=== PATIENT | male | born 1970 | race Two or more races ===

== ENCOUNTER → 2017-05-08 | Outpatient (REF) | payer BC | LOC: M SMT 17:05 | PROVIDERS: ATTEND Nurse Practitioner Women's Health | DX: R35.0 Frequency of micturition (principal) ==

== ENCOUNTER → 2018-07-20 | Outpatient (CLI) | payer BC ==
[2018-07-20 19:59] LABS: FREE THYROXINE INDEX 2.4 % (1.4-3.8); T UPTAKE 34 % (33-40)
[2018-07-23 14:16] LABS: SSA SJOGRENS A <0.2 AI (0.0-0.9); SSB SJOGRENS B <0.2 AI (0.0-0.9)
== END ==
LOC: M WUC 11:53
DX: M35.00 Sjogren syndrome, unspecified (principal); Z13.29 Encounter for screening for other suspected endocrine disorder
CPT/HCPCS: 84443

== ENCOUNTER 2019-03-20 10:46 | Day surgery (SDC) | payer BC ==
[~2019-03-20] VITALS: Ht 172.7 cm; Wt 82.6 kg
[~2019-03-20 10:46] MED LIST: EZET10TA21 PO; NS 1,000 ML IV ONE; OMEGCAP9 PO; RED600TA PO
[2019-03-20] MEDS ORDERED: PROPOFOL 200 MG/20 ML VIAL As Ordered ONE ×2 (11:51→12:47)
[2019-03-20] MEDS ORDERED: LIDOCAINE 2% INJ 100 MG/5 ML SDV (FOR ANES.) As Ordered ONE (11:52)
--- NOTE | 2019-03-20 12:45 | ROOR ---
Patient Name: Tavon Stewart Procedure Date: 03/20/2019 12:29 PM Date of : 1970 Age: 48 Room: [facility] Gender: Male Note Status: Finalized Procedure: Colonoscopy Indications: Screening for colorectal malignant neoplasm Providers: Michael Solis Jr, MD Referring MD: KELLY MARI Requesting Provider: Medicines: Propofol per Anesthesia Complications: No immediate complications. Procedure: Pre-Anesthesia Assessment: - Prior to the procedure, a History and Physical was performed, and patient medications and allergies were reviewed. The patient is competent. The risks and benefits of the procedure and the sedation options and risks were discussed with the patient. All questions were answered and informed consent was obtained. Patient identification and proposed procedure were verified by the physician and the nurse in the pre-procedure area and in the procedure room. Mental Status Examination: alert and oriented. Airway Examination: normal oropharyngeal airway and neck mobility. Respiratory Examination: clear to auscultation. CV Examination: normal. ASA Grade Assessment: II - A patient with mild systemic disease. After reviewing the risks and benefits, the patient was deemed in satisfactory condition to undergo the procedure. The anesthesia plan was to use moderate sedation / analgesia (conscious sedation). Immediately prior to administration of medications, the patient was re-assessed for adequacy to receive sedatives. The heart rate, respiratory rate, oxygen saturations, blood pressure, adequacy of pulmonary ventilation, and response to care were monitored throughout the procedure. The physical status of the patient was re-assessed after the procedure. The Colonoscope was introduced through the anus and advanced to the cecum, identified by appendiceal orifice and ileocecal valve. The colonoscopy was performed without difficulty. The patient tolerated the procedure well. The quality of the bowel preparation was adequate. Findings: The rectum, recto-sigmoid colon, sigmoid colon, descending colon, transverse colon, cecum, appendiceal orifice and ileocecal valve appeared normal. A diminutive polyp was found in the ascending colon. The polyp was removed with a jumbo cold forceps. Resection and retrieval were complete. Impression: - The rectum, recto-sigmoid colon, sigmoid colon, descending colon, transverse colon, cecum, appendiceal orifice and ileocecal valve are normal. - One diminutive polyp in the ascending colon, removed with a jumbo cold forceps. Resected and retrieved. Recommendation: - Discharge patient to home (ambulatory). - Repeat colonoscopy in 5-10 years for surveillance based on pathology results. - Telephone my office for pathology results in 1 week. Michael Solis MD Michael Solis Jr, MD 03/20/2019 12:44:51 PM Electronically signed by Michael Solis Jr, MD Number of Addenda: 0 Note Initiated On: 03/20/2019 12:29 PM Estimated Blood Loss: Estimated blood loss: none.
[2019-03-20 13:10] VITALS: BP 124/94
== END 2019-03-20 13:21 | disposition home or self-care (01) ==
LOC: M OPP 10:46
PROVIDERS: ATTEND Surgery
DX: D12.2 Benign neoplasm of ascending colon (principal); Z12.11 Encounter for screening for malignant neoplasm of colon

== ENCOUNTER 2019-08-01 16:21 | Emergency (ER) | payer BC ==
[~2019-08-01] VITALS: Ht 172.7 cm; Wt 91.4 kg
[~2019-08-01 16:21] MED LIST changes: -NS 1,000 ML IV ONE
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
[2019-08-01] MEDS ORDERED: ADACEL/BOOSTRIX VACCINE (DIPHTH/PERTUSS/ACELL/TETANUS)0.5ML SYR (90715) IM ONE (18:45)
[2019-08-01 18:55] VITALS: BP 140/86
== END 2019-08-01 18:58 | disposition home or self-care (01) ==
LOC: M ED 16:21
DX: S09.90XA Unspecified injury of head, initial encounter (principal); S13.4XXA Sprain of ligaments of cervical spine, initial encounter; S00.31XA Abrasion of nose, initial encounter; W17.89XA Other fall from one level to another, initial encounter; W22.8XXA Striking against or struck by other objects, initial encounter; Y99.0 Civilian activity done for income or pay; Z79.899 Other long term (current) drug therapy

== ENCOUNTER 2019-09-22 08:19 | Emergency (ER) | payer BC ==
[~2019-09-22] VITALS: Ht 172.7 cm; Wt 84.1 kg
[2019-09-22] MEDS ORDERED: ALEVE (08:28)
--- NOTE | 2019-09-22 09:29 | REP ---
Right hip: Two views. History: Right hip pain. Findings: AP and frog-leg views of the right hip demonstrate normal bones, joints and soft tissues. No fracture or subluxation is seen. Impression: Negative radiographs of the right hip. Electronically Signed by Froy Rios MD 09/22/2019 09:20 A
--- NOTE | 2019-09-22 09:30 | REP ---
Right shoulder: Three views. History: Right shoulder pain. Findings: There is subcortical cyst formation and spurring at the acromioclavicular joint consistent with osteoarthritis. Glenohumeral articulation and the AC joint are normally aligned. Periarticular soft tissues are unremarkable. Impression: AC joint osteoarthritis with subcortical cyst formation. No acute bony abnormality. Electronically Signed by Froy Rios MD 09/22/2019 09:21 A
[2019-09-22 10:08] VITALS: BP 135/91
== END 2019-09-22 10:24 | disposition home or self-care (01) ==
LOC: M ED 08:19
DX: M19.011 Primary osteoarthritis, right shoulder (principal); M85.611 Other cyst of bone, right shoulder; M25.551 Pain in right hip; Z79.899 Other long term (current) drug therapy

== ENCOUNTER → 2019-10-09 | Outpatient (CLI) | payer BC ==
[~2019-10-09] MED LIST changes: +ALEVE
--- NOTE | 2019-10-09 14:10 | REPVR ---
PROCEDURE INFORMATION: Exam: MR Lumbar Spine Without Contrast. Exam date and time: 10/09/2019 12:30 PM Age: 49 years old Clinical indication: Low back pain; Additional info: M54.5 low back pain TECHNIQUE: Imaging protocol: Multiplanar magnetic resonance images of the lumbar spine without intravenous contrast. COMPARISON: CR Spine. Lumbosacral, complete 09/15/2014 1:52 PM FINDINGS: Vertebrae: There is no fracture or listhesis. Normal vertebral body alignment and heights are preserved. Spinal cord: The conus medullaris terminates at L2. L1-L2: There is shallow disc bulging. There is mild facet hypertrophy. The spinal canal and neural foramina are patent. L2-L3: There is shallow disc bulging. There is mild facet and ligamentous hypertrophy. There is mild bilateral neural foraminal narrowing. L3-L4: There is diffuse disc bulging. There is moderate facet and ligamentous hypertrophy. There is [id number] bilateral neural foraminal narrowing. L4-L5: There is diffuse disc bulging. There is moderate facet hypertrophy. There is [id number] right and moderate left neural foraminal narrowing. L5-S1: There is diffuse disc bulging asymmetric to the right. There is mild facet hypertrophy. There is moderate bilateral neural foraminal narrowing. Soft tissues: Unremarkable. IMPRESSION: Degenerative disc disease and spondylosis as described. Electronically signed by: Florence Lee On 10/09/2019 14:10:36 PM
== END ==
LOC: M RAD 12:24
PROVIDERS: ATTEND Orthopaedic Surgery
DX: M47.816 Spondylosis without myelopathy or radiculopathy, lumbar region (principal); M51.26 Other intervertebral disc displacement, lumbar region; M51.27 Other intervertebral disc displacement, lumbosacral region; M51.36 Other intervertebral disc degeneration, lumbar region; M51.37 Other intervertebral disc degeneration, lumbosacral region

== ENCOUNTER 2019-12-22 20:06 | Emergency (ER) | payer OTHER, BC ==
[~2019-12-22] VITALS: Ht 172.7 cm; Wt 86.4 kg
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
[2019-12-22 21:56] VITALS: BP 142/88
== END 2019-12-22 21:58 | disposition home or self-care (01) ==
LOC: M ED 20:06
DX: S02.5XXA Fracture of tooth (traumatic), initial encounter for closed fracture (principal); W22.8XXA Striking against or struck by other objects, initial encounter; Y92.89 Other specified places as the place of occurrence of the external cause; Y99.0 Civilian activity done for income or pay; Z79.899 Other long term (current) drug therapy

== ENCOUNTER → 2021-12-26 | Outpatient (CLI) | payer BC | LOC: M WUC 10:25 | PROVIDERS: ATTEND Physician Assistant | DX: M25.561 Pain in right knee (principal) ==

== ENCOUNTER → 2022-06-12 | Outpatient (CLI) | payer BC | LOC: M WUC 08:56 | PROVIDERS: ATTEND Physician Assistant | DX: M25.552 Pain in left hip (principal) ==

== ENCOUNTER → 2023-07-20 | Outpatient (CLI) | payer BC | LOC: M WHC 11:20 | PROVIDERS: ATTEND Physician Assistant | DX: M79.605 Pain in left leg (principal) ==

== ENCOUNTER → 2023-07-20 | Outpatient (CLI) | payer BC | LOC: M PLAIMG 12:16 | PROVIDERS: ATTEND Physician Assistant | DX: M79.605 Pain in left leg (principal); M13.0 Polyarthritis, unspecified; M79.10 Myalgia, unspecified site; M51.37 Other intervertebral disc degeneration, lumbosacral region ==

== ENCOUNTER 2024-05-15 09:13 | Day surgery (SDC) | payer BC ==
[~2024-05-15] VITALS: Ht 172.7 cm; Wt 84.3 kg
[~2024-05-15 09:13] MED LIST changes: +FENO134C20 PO; +PITA4TAB2 PO
[2024-05-15] MEDS: NS 1,000 ML IV ONE (10:02)
[2024-05-15] MEDS ORDERED: propofoL 200 MG/20 ML VIAL As Ordered ONE (10:43)
[2024-05-15 11:01] VITALS: TEMP 97.5
[2024-05-15 11:15] VITALS: BP 134/85; O2SAT 98
== END 2024-05-15 11:27 | disposition home or self-care (01) ==
LOC: M OPP 09:13
PROVIDERS: ATTEND Surgery
DX: Z12.11 Encounter for screening for malignant neoplasm of colon (principal); Z86.010 Personal history of colon polyps; Z79.02 Long term (current) use of antithrombotics/antiplatelets; Z79.899 Other long term (current) drug therapy; Z87.891 Personal history of nicotine dependence

== ENCOUNTER → 2024-11-06 | Outpatient (CLI) | payer BC | LOC: M SLEEP HO 10:57 | PROVIDERS: ATTEND Physician Assistant | DX: R06.83 Snoring (principal) ==